=== PATIENT | male | born 1950 | race Caucasian/White ===

== ENCOUNTER 2017-09-13 13:58 | Emergency (ER) | payer OTHER ==
[~2017-09-13] VITALS: Ht 182.9 cm; Wt 102.0 kg
[2017-09-13 14:01] VITALS: BP 161/78; PULSE 74; RESP 16; TEMP 98.5; O2SAT 98
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
== END 2017-09-13 16:19 | disposition home or self-care (01) ==
LOC: NEPK 13:58
DX: S82.92XD Unspecified fracture of left lower leg, subsequent encounter for closed fracture with routine healing (principal); V29.9XXD Motorcycle rider (driver) (passenger) injured in unspecified traffic accident, subsequent encounter
CPT/HCPCS: 99281